=== PATIENT | male | born 1995 | race Caucasian/White ===

== ENCOUNTER 2020-07-20 18:42 | Emergency (ER) | payer MEDICAID ==
[~2020-07-20] VITALS: Ht 175.3 cm; Wt 81.8 kg
[2020-07-20 18:45] VITALS: BP 171/95
[2020-07-20] MEDS ORDERED: TETanus/Pertussis (Acell)/Diphther VAC/PF (Tdap-Adult) 0.5ml syringe IMVAC ONE (19:30)
== END 2020-07-20 21:30 | disposition home or self-care (01) ==
LOC: ER 18:42
DX: S61.210A Laceration without foreign body of right index finger without damage to nail, initial encounter (principal); Z88.1 Allergy status to other antibiotic agents; W45.8XXA Other foreign body or object entering through skin, initial encounter; Y93.89 Activity, other specified; Y92.89 Other specified places as the place of occurrence of the external cause; Y99.8 Other external cause status
CPT/HCPCS: 12001; 90471; 90715; 99283